=== PATIENT | female | born 1940 | race African-American/Black ===

== ENCOUNTER → 2018-06-13 | Outpatient (CLI) | payer MEDICARE | END | disposition home or self-care (01) | LOC: CVU 13:07 | PROVIDERS: ATTEND Internal Medicine Cardiovascular Disease | DX: E78.2 Mixed hyperlipidemia (principal); I65.23 Occlusion and stenosis of bilateral carotid arteries; E11.9 Type 2 diabetes mellitus without complications | CPT/HCPCS: 93880 ==

== ENCOUNTER → 2019-03-05 | Outpatient (CLI) | payer MEDICARE ==
[~2019-03-05] MED LIST: REGADENOSON 0.4 MG/5 ML SYRINGE ONE
== END | disposition home or self-care (01) ==
LOC: CFH 13:01
PROVIDERS: ATTEND Internal Medicine Cardiovascular Disease
DX: I10 Essential (primary) hypertension (principal); I99.8 Other disorder of circulatory system
CPT/HCPCS: 78452; 93017; A9502; J2785

== ENCOUNTER 2019-05-10 14:50 | Outpatient (CLI) | payer MEDICARE ==
[2019-05-10] MEDS ORDERED: GADOTERATE 7.5 MMOL/15 ML VIAL ONE (16:25)
== END 2019-05-10 23:59 | disposition home or self-care (01) ==
LOC: CFH 14:50
PROVIDERS: ATTEND Psychiatry & Neurology Neurology
DX: G31.9 Degenerative disease of nervous system, unspecified (principal); R90.82 White matter disease, unspecified; M50.21 Other cervical disc displacement, high cervical region; M50.30 Other cervical disc degeneration, unspecified cervical region; M43.12 Spondylolisthesis, cervical region
CPT/HCPCS: 70553; 72141; A9575

== ENCOUNTER 2019-05-15 13:31 | Outpatient (CLI) | payer MEDICARE | END 2019-05-15 23:59 | disposition home or self-care (01) | LOC: CVU 13:31 | PROVIDERS: ATTEND Family Medicine | DX: R60.0 Localized edema (principal); M79.606 Pain in leg, unspecified | CPT/HCPCS: 93970 ==